=== PATIENT | female | born 1975 | race Caucasian/White ===

== ENCOUNTER 2021-08-31 16:36 | Emergency (ER) | payer OTHER ==
[~2021-08-31] VITALS: Ht 152.4 cm; Wt 107.0 kg
[2021-08-31 17:20] VITALS: BP 145/90
--- NOTE | 2021-08-31 17:57 | NUR ---
PATIENT LEFT WITHOUT BEING SEEN BY DR. JIN. NO FURTHER CARE PROVIDED FOR PATIENT.
--- NOTE | 2021-08-31 17:58 | NUR ---
CALLED FOR PT IN LOBBY AND OUTSIDE FOR AN EKG, NO RESPONSE.
--- NOTE | 2021-08-31 17:59 | NUR ---
2ND CALL JEREMY WAGNER N/A
--- NOTE | 2021-08-31 18:38 | NUR ---
CALLED PT AT HOME,ASKED IF SHE WOULD LIKE TO COME BACK TO ER FOR MEDICAL TREATMENT PT STS" VIRIDIANA FRYEET THE FIRE DEPARTMENT SAID YOU REFUSED TO TREAT ME AND THE ONLY WAY I WOULD GET ANY CARE WAS TO BE WHEELCHAIR IN TO THE ER LOBBY FOR CARE" Addendum: 08/31/21 at 1852 by JESSICAJJ I ADVISED THE PT WE ARE MORE THEN HAPPY TO TAKE CARE OF HER. THE TRIAGE NURSE HAD ORDER EKG AND WAS GOING TO HAVE THE ER MD DR DAVIN ROBERTS HER IN TRIAGE AFTER HER EKG. PT WAS NOT IN THE ER LOBBY WHEN EMT CALLED HER TO DO AN EKG IN TRIAGE.
--- NOTE | 2021-08-31 21:15 | NUR ---
PER , NO ANSWER WHEN CALLED IN LOBBY
== END 2021-08-31 17:57 | disposition left against medical advice (07) ==
LOC: MED 16:36
DX: R07.9 Chest pain, unspecified (principal); Z53.21 Procedure and treatment not carried out due to patient leaving prior to being seen by health care provider
CPT/HCPCS: 99281